=== PATIENT | female | born 1960 | race Two or more races ===

== ENCOUNTER 2024-12-03 15:13 | Inpatient (IN) | payer MEDICARE, MEDICAID ==
[~2024-12-03] VITALS: Ht 154.9 cm; Wt 91.3 kg
[2024-12-03] MEDS: SODIUM CHLORIDE 0.9% 500 ML IV ONE (15:30)
--- NOTE | 2024-12-03 15:31 | ED.PDOC ---
History of Present Illness HPI Comments This is a 64-year-old female who comes in with chief complaint of decreased food and water intake for the past several days. The patient states that she choked on something approximately three weeks ago and now her throat is somewhat sore so she is unable to eat. She was not taking any of her medications for approximately three weeks either. The patient states that she has not eaten food for eight days and is not drinking fluid. Upon transport, the patient had normal vital signs and is not complaining of any chest pain or shortness for breath. Her approximately three months ago and she has been somewhat depressed as well. Chief Complaint: General Weakness Time Seen by MD: 15:16 Reviewed Notes: Nurses Notes, Racket Stringer Notes, Medications, Allergies (Allergies listed above) Allergies: Coded Allergies: Sulfa Antibiotics (Verified Allergy, Unknown, 12/03/24) Information Source: Patient, Emergency Med Personnel Mode of Arrival: EMS Severity: Moderate Timing: Days Duration: Since onset Prehospital treatment: IVF, Other (Normal saline fluid) Associated signs and symptoms Generalized weakness with decreased food intake and fluid intake Past Medical History PAST MEDICAL HISTORY: Depression, HTN Surgical History: Appendectomy, Cholecystectomy, , Tonsillectomy, Denies all surgeries VISITOR SERVICES COORDINATOR History: No Pertinent VISITOR SERVICES COORDINATOR History Family History Family History: Family hx of DM Social History Smoker: Cigarettes Alcohol: Denies ETOH Use Drugs: Denies Drug Use Lives In: Home Constitutional: reports: weakness; denies: chills, diaphoresis, fatigue, fever, malaise, sweats, others EENTM: denies: blurred vision, double vision, ear bleeding, ear discharge, ear drainage, ear pain, ear ringing, eye pain, eye redness, hearing loss, mouth pain, mouth swelling, nasal discharge, nose bleeding, nose congestion, nose pain, photophobia, tearing, throat pain, throat swelling, voice changes, others Respiratory: denies: cough, hemoptysis, orthopnea, SOB at rest, shortness of breath, SOB with excertion, stridor, wheezing, others Cardiovascular: denies: chest pain, dizzy spells, diaphoresis, Dyspnea on exertion, edema, irregular heart beat, left arm pain, lightheadedness, palpitations, PND, syncope, others Gastrointestinal: reports: poor appetite; denies: abdomen distended, abdominal pain, blood streaked bowels, constipated, diarrhea, dysphagia, difficulty swallowing, hematemesis, melena, nausea, poor fluid intake, rectal bleeding, rectal pain, vomiting, others Genitourinary: denies: abnormal vagina bleeding, burning, dyspareunia, dysuria, flank pain, frequency, hematuria, incontinence, pain, , vagina discharge, urgency, others Neurological: denies: dizziness, fainting, headache, left sided numbness, left sided weakness, numbness, paresthesia, pre-existing deficit, right sided numbness, right sided weakness, seizure, speech problems, tingling, tremors, weakness, others Musculoskeletal: denies: back pain, gout, joint pain, joint swelling, muscle pain, muscle stiffness, neck pain, others Integumetry: denies: bruises, change in color, change in hair/nails, dryness, laceration, lesions, lumps, rash, wounds, others Allergic/Immunocompromised: denies: Difficulty Healing, Frequent Infections, Hives, Itching, others Hematologic/Lymphatic: denies: anemia, blood clots, easy bleeding, easy bruising, swollen glands, others Endocrine: denies: excessive hunger, excessive sweating, excessive thirst, excessive urination, flushing, intolerance to cold, intolerance to heat, unexplained weight gain, unexplained weight loss, others Psychiatric: denies: anxiety, bipolar disorder, depression, hopeless, panic disorder, schizophrenia, sleepless, suicidal, others Physical Exam General Appearance: Moderate Distress HEENT: Pale Conjuntivae (L), Pale Conjuntivae (R), Pharynx Normal, TMs Normal Neck: Full Range of Motion, Non-Tender, Normal, Normal Inspection Respiratory: Chest Non-Tender, Lungs Clear, No Accessory Muscle Use, No Respiratory Distress, Normal Breath Sounds Cardiovascular: No Edema, No JVD, No Murmur, No Gallop, Normal Peripheral Pulses, Regular Rate/Rhythm Breast Exam: Deferred Gastrointestinal: No Organomegaly, Non Tender, No Pulsatile Mass, Normal Bowel Sounds, Soft Genitalia: Deferred Pelvic: Deferred Rectal: Deferred Extremities: No calf tenderness, Normal capillary refill, Normal inspection, Normal range of motion, Non-tender, No pedal edema Musculoskeletal : Apperance: Normal Neurologic: Alert, dance therapist II-XII nml as Tested, Motor Weakness, Normal Affect, Normal Mood, No Sensory Deficits Cerebellar Function: Normal Reflexes: Normal Skin: Dry, Normal Color, Warm Lymphatic: No Adenopathy Was a procedure done? Was a procedure done?: No EKG EKG : Pulse Rate (adult): 72 [place]: Normal Cardiac Rhythm: NSR Block: None ST: Nonsp Differential Dx Considerations may include: Generalized weakness, dehydration, sepsis, UTI X-Ray, Labs, Meds, VS Vital Signs Date Time Temp Pulse Resp B/P (MAP) Pulse Ox O2 Delivery O2 Flow Rate FiO2 12/03/24 19:30 Room Air* 0 21 12/03/24 19:30 98.0 65 18 121/53 (75) 97 98.0 12/03/24 18:30 64 20 121/53 (75) 97 12/03/24 17:00 98.5 66 16 124/75 (91) 97 98.5 12/03/24 15:40 68 14 100 Room Air* 0 21 12/03/24 15:40 98.5 68 14 128/56 (80) 100 98.5 12/03/24 15:36 72 12/03/24 15:21 98.1 81 14 155/82 (106) 100 98.1 12/03/24 15:15 72 Lab Test 12/03/24 19:59 12/03/24 17:18 12/03/24 16:16 Range/Units Urine Color Yellow Yellow Urine Clarity Turbid H Clear Urine pH 6.0 5.0-9.0 Urine Specific [place] 1.026 1.001-1.035 Urine Protein 1+ H Negative Urine Ketones 4+ H Negative Urine Blood Negative Negative /uL Urine Nitrite 2+ H Negative Urine Bilirubin Negative Negative Urine Urobilinogen Normal Negative mg/dL Urine Leukocyte Esterase Negative Negative /uL Urine RBC 1 0 - 4 /hpf Urine Microscopic WBC 1 0-5 /HPF Urine Squamous Epithelial Cells Mod <5 /hpf Urine Amorphous Crystals Few None Seen /hpf Urine Bacteria Mod H None Seen /hpf Urine Hyaline Casts Few 0 - 2 /lpf Urine Mucus Few None Seen Urine Glucose Normal Normal mg/dL White Blood Count 8.4 4.4-10.8 10^3/uL Red Blood Count 4.96 4.0-5.20 10^6/uL Hemoglobin 14.8 12.2-16.2 g/dL Hematocrit 45.3 36.0-46.0 % Mean Corpuscular Volume 91.5 80.0-100.0 fL Mean Corpuscular Hemoglobin 29.8 28.0-32.0 pg Mean Corpuscular Hemoglobin Concent 32.5 32.0-36.0 g/dL Red Cell Distribution Width 21.3 H 11.8-14.3 % Platelet Count 234 140-450 10^3/uL Mean Platelet Volume 11.2 H 6.9-10.8 fL Neutrophils (%) (Auto) 69.6 37.0-80.0 % Lymphocytes (%) (Auto) 21.7 10.0-50.0 % Monocytes (%) (Auto) 7.9 0.0-12.0 % Eosinophils (%) (Auto) 0.3 0.0-7.0 % Basophils (%) (Auto) 0.5 0.0-2.0 % Neutrophils # (Auto) 5.8 1.6-8.6 10 ^3/uL Lymphocytes # (Auto) 1.8 0.4-5.4 10 ^3/uL Monocytes # (Auto) 0.7 0-1.3 10 ^3/uL Eosinophils # (Auto) 0 0-0.8 10 ^3/uL Basophils # (Auto) 0 0-0.2 10 ^3/uL Nucleated Red Blood Cells 0.1 % Sodium Level 136 136-145 mmol/L Potassium Level 3.1 L 3.5-5.1 mmol/L Chloride Level 105 98-107 mmol/L Carbon Dioxide Level 17 L 20-31 mmol/L Anion Gap 14 5-15 Blood Urea Nitrogen 19 9-23 mg/dL Creatinine 1.26 H 0.550-1.02 mg/dL Glomerular Filtration Rate Calc 47 >90 mL/min BUN/Creatinine Ratio 15.1 10.0-20.0 Serum Glucose 84 74-106 mg/dL Calcium Level 10.3 8.7-10.4 mg/dL Total Bilirubin 0.7 0.2-1.0 mg/dL Aspartate Amino Transferase (AST) 26 13-40 U/L Alanine Aminotransferase (ALT) 22 7-40 U/L Alkaline Phosphatase 76 46-116 U/L Total Protein 7.2 5.7-8.2 g/dL Albumin 4.4 3.2-4.8 g/dL Current Medications Medications (Trade) Dose Ordered Sig/Melody Route Start Time Stop Time Status Last Admin Sodium Chloride 500 ml @ 500 mls/hr Q1H ONCE IV 12/03/24 15:30 12/03/24 16:29 DC 12/03/24 15:30 Potassium Bicarbonate (Klor-Con/Ef) 50 meq ONCE ONCE PO 12/03/24 17:45 12/03/24 17:46 DC 12/03/24 17:41 The patient's CBC is within normal limits The chemistry panel shows hypokalemia at 3.1 The patient was being given potassium The patient had an IV Hep-Lock and given normal saline at a 500 cc bolus The urine test is negative At this time, the patient was being admitted to the hospitalist Time of 1ST Reevaluation: 15:35 Reevaluation 1ST: Unchanged Patient Education/Counseling: Diagnosis, Treatment, Prognosis Family Education/Counseling: Diagnosis, Treatment, Prognosis Departure 1 Departure Time of Disposition: 20:36 Impression: Primary Impression: Generalized weakness Additional Impressions: Dehydration Failure to thrive Qualified Codes: R62.7 - Adult failure to thrive Disposition: ADMITTED INPATIENT Admit to: Med Surg Condition: Fair Critical Care Note Critical Care Time?: Yes (35 min-critical care time only) Stability Stability form required: Yes Unstable for transfer: ED Physician Assesment (Clinical assesment) Heart Score Heart Score: Heart Score Response (Comments) Value History N/A 0 EKG N/A 0 Age N/A 0 Risk Factors N/A 0 Troponin N/A 0 Total 0 DEMETRIUS LR MD Dec 03, 2024 15:31
[2024-12-03 15:40] VITALS: PULSE 68; RESP 14; O2SAT 100
[2024-12-03 16:54] LABS: Alanine Aminotransferase 22 U/L (7-40); Albumin 4.4 g/dL (3.2-4.8); Alkaline Phosphatase 76 U/L (46-116); Anion Gap 14 (5-15); Aspartate Aminotransferase 26 U/L (13-40); BUN/Creatinine Ratio 15.1 (10.0-20.0); Blood Urea Nitrogen 19 mg/dL (9-23); Calcium 10.3 mg/dL (8.7-10.4); Chloride 105 mmol/L (98-107); Glucose 84 mg/dL (74-106); Sodium 136 mmol/L (136-145); Total Protein 7.2 g/dL (5.7-8.2)
[2024-12-03 16:55] LABS: Bilirubin, Total 0.7 mg/dL (0.2-1.0)
[2024-12-03 17:03] LABS: Potassium 3.1 mmol/L (3.5-5.1)
[2024-12-03 17:04] LABS: Carbon Dioxide 17 mmol/L (20-31)
[2024-12-03 17:29] LABS: Basophils # (auto) 0 10 ^3/uL (0-0.2); Basophils % (auto) 0.5 % (0.0-2.0); Eosinophils # (auto) 0 10 ^3/uL (0-0.8); Eosinophils % (auto) 0.3 % (0.0-7.0); Hematocrit 45.3 % (36.0-46.0); Hemoglobin 14.8 g/dL (12.2-16.2); Lymphocytes # (auto) 1.8 10 ^3/uL (0.4-5.4); Lymphocytes % (auto) 21.7 % (10.0-50.0); Mean Corpuscular Hemoglobin 29.8 pg (28.0-32.0); Mean Corpuscular Hgb Conc. 32.5 g/dL (32.0-36.0); Mean Corpuscular Volume 91.5 fL (80.0-100.0); Monocytes # (auto) 0.7 10 ^3/uL (0-1.3); Monocytes % (auto) 7.9 % (0.0-12.0); Neutrophils # (auto) 5.8 10 ^3/uL (1.6-8.6); Neutrophils % (auto) 69.6 % (37.0-80.0); Nucleated Red Blood Cells % 0.1 %; Platelet Count (auto) 234 10^3/uL (140-450); Red Blood Cells 4.96 10^6/uL (4.0-5.20); White Blood Cell 8.4 10^3/uL (4.4-10.8)
[2024-12-03 17:30] LABS: Red Cell Distribution Width 21.3 % (11.8-14.3)
[2024-12-03] MEDS: POTASSIUM EFFERVESENT TAB 25 MEQ PO ONE (17:41)
--- NOTE | 2024-12-03 18:57 | ECG ---
[facility] Test Date: 2024-12-03 Test Time: 15:15:01 Pat Name: COURTNEY EARL Department: ED Room: 0250 Gender: F Co Founder And Chairman: jesus : 1960 Requested By: DEMETRIUS LR Order Number: [id number] Reading MD: Quang Saleh Measurements Intervals [place] Rate: 72 P: 34 PA: 165 QRS: -39 QRSD: 94 T: 33 QT: 374 QTc: 410 Interpretive Statements Sinus rhythm Inferior infarct, old Anterior infarct, old Electronically Signed On 12-04-2024 18:48:51 PDT by Quang Saleh Please click the below link to view image of tracing.
[2024-12-03 20:33] LABS: Urine Amorphous Crystal FEW /hpf (None Seen); Urine Bacteria MOD /hpf (None Seen); Urine Blood Negative /uL (Negative); Urine Clarity Turbid (Clear); Urine Color Yellow (Yellow); Urine Hyaline Cast FEW /lpf (0 - 2); Urine Mucus FEW (None Seen); Urine Protein, UAD 1+ (Negative); Urine Specific Gravity 1.026 (1.001-1.035); Urine Squamous Epithelial Cell MOD /hpf (<5); Urine Urobilinogen Normal (Negative); Urine WBC 1 /HPF (0-5)
[2024-12-04] VITALS (11 sets, daily range): BP systolic 102–135; BP diastolic 40–97; PULSE 55–82; RESP 16–18; TEMP 97.5–98.1; O2SAT 94–100
--- NOTE | 2024-12-04 00:24 | DVHHP2 ---
History of Present Illness Reason for Visit: Difficulty swallowing History of Present Illness 64-year-old female presents for evaluation of difficulty swallowing. Patient reports a two weeks ago while eating meat she felt a piece getting stuck in her throat. She reports that since then she has the sensation of having a piece of food in her throat and has not been able to eat solid food. She states being able to drink fluids. Denies shortness or breath. No other acute complaints reported. Past Medical History Hypertension and depression Past Surgical History Cholecystectomy, appendectomy, , tonsillectomy Family History Noncontributory Smoke: <1 pack per day ALCOHOL: none Drugs: None Lives: with Family Review of Systems Review of Systems Review of systems are currently negative otherwise addressed in HPI. Allergies: Coded Allergies: Sulfa Antibiotics (Verified Allergy, Unknown, 12/03/24) Exam Vital Signs Vital Signs Date Time Temp Pulse Resp B/P (MAP) Pulse Ox O2 Delivery O2 Flow Rate FiO2 12/03/24 22:00 98.0 57 18 115/55 (75) 97 98.0 12/03/24 19:30 Room Air* 0 21 Exam Gen: 64-year-old female in no apparent distress, obese Skin: Warm, dry, normal color and texture, no rash. HEENT: Normocephalic atraumatic, mucous membranes moist and pink. Neck: Cervical and supraclavicular nodes normal without enlargement, trachea is midline, thyroid gland is normal without masses. Pulmonary: Clear to auscultation and percussion bilaterally. Cardiac: Regular rate and rhythm. No murmur Abdomen: Soft, nontender, nondistended, bowel sounds present all 4 quadrants, no guarding, no rigidity, no organomegaly. Extremities: No cyanosis, clubbing, no edema Neuro: Cranial nerves II through XII grossly intact, normal affect and speech, no focal motor deficits. Labs/Xrays Labs Test 12/03/24 19:59 12/03/24 17:18 12/03/24 16:16 Range/Units Urine Color Yellow Yellow Urine Clarity Turbid H Clear Urine pH 6.0 5.0-9.0 Urine Specific [place] 1.026 1.001-1.035 Urine Protein 1+ H Negative Urine Ketones 4+ H Negative Urine Blood Negative Negative /uL Urine Nitrite 2+ H Negative Urine Bilirubin Negative Negative Urine Urobilinogen Normal Negative mg/dL Urine Leukocyte Esterase Negative Negative /uL Urine RBC 1 0 - 4 /hpf Urine Microscopic WBC 1 0-5 /HPF Urine Squamous Epithelial Cells Mod <5 /hpf Urine Amorphous Crystals Few None Seen /hpf Urine Bacteria Mod H None Seen /hpf Urine Hyaline Casts Few 0 - 2 /lpf Urine Mucus Few None Seen Urine Glucose Normal Normal mg/dL White Blood Count 8.4 4.4-10.8 10^3/uL Red Blood Count 4.96 4.0-5.20 10^6/uL Hemoglobin 14.8 12.2-16.2 g/dL Hematocrit 45.3 36.0-46.0 % Mean Corpuscular Volume 91.5 80.0-100.0 fL Mean Corpuscular Hemoglobin 29.8 28.0-32.0 pg Mean Corpuscular Hemoglobin Concent 32.5 32.0-36.0 g/dL Red Cell Distribution Width 21.3 H 11.8-14.3 % Platelet Count 234 140-450 10^3/uL Mean Platelet Volume 11.2 H 6.9-10.8 fL Neutrophils (%) (Auto) 69.6 37.0-80.0 % Lymphocytes (%) (Auto) 21.7 10.0-50.0 % Monocytes (%) (Auto) 7.9 0.0-12.0 % Eosinophils (%) (Auto) 0.3 0.0-7.0 % Basophils (%) (Auto) 0.5 0.0-2.0 % Neutrophils # (Auto) 5.8 1.6-8.6 10 ^3/uL Lymphocytes # (Auto) 1.8 0.4-5.4 10 ^3/uL Monocytes # (Auto) 0.7 0-1.3 10 ^3/uL Eosinophils # (Auto) 0 0-0.8 10 ^3/uL Basophils # (Auto) 0 0-0.2 10 ^3/uL Nucleated Red Blood Cells 0.1 % Sodium Level 136 136-145 mmol/L Potassium Level 3.1 L 3.5-5.1 mmol/L Chloride Level 105 98-107 mmol/L Carbon Dioxide Level 17 L 20-31 mmol/L Anion Gap 14 5-15 Blood Urea Nitrogen 19 9-23 mg/dL Creatinine 1.26 H 0.550-1.02 mg/dL Glomerular Filtration Rate Calc 47 >90 mL/min BUN/Creatinine Ratio 15.1 10.0-20.0 Serum Glucose 84 74-106 mg/dL Calcium Level 10.3 8.7-10.4 mg/dL Total Bilirubin 0.7 0.2-1.0 mg/dL Aspartate Amino Transferase (AST) 26 13-40 U/L Alanine Aminotransferase (ALT) 22 7-40 U/L Alkaline Phosphatase 76 46-116 U/L Total Protein 7.2 5.7-8.2 g/dL Albumin 4.4 3.2-4.8 g/dL Assessment/Plan Assessment/Plan Assessment ? Esophageal obstruction Dysphagia Acute kidney injury Hypokalemia Plan Admit the patient to [facility] to the hospitalist GI consult Chest CT pending Maintenance IV fluids NPO Continue treatment per orders. Plan discussed with: Patient My Orders Orders - CORINE PRO Procedure Category Date Status Time Chest Without Contrast CT 12/03/24 Logged 23:57 Admit ADMIT 12/03/24 Transmitted 23:57 * Gi Dvh Master Automotive Technician CONS 12/04/24 Transmitted 00:16 D5w/Sod Chlo 0.9% Ns PHA 12/04/24 Transmitted 00:30 Basic Metabolic Panel LAB 12/04/24 Transmitted 04:00 Ondansetron Hcl PHA 12/04/24 Transmitted (Zofran) 00:30 Npo (Nothing By DIET 12/04/24 Transmitted Mouth) Diet Breakfast Condition: Stable DALILA 12/04/24 Transmitted 00:16 Bedrest With Bathroom DALILA 12/04/24 Transmitted Privileg 00:16 Date of Service: Dec 03, 2024 Billing Provider: CORINE PRO Common Visit Codes: [id number] INP/OBS CARE (MOD) CORINE PRO Dec 04, 2024 00:24
[2024-12-04] MEDS ORDERED: ONDANSETRON HCL 4 MG/2 ML VIAL IV PRN (00:30)
[2024-12-04] MEDS: D5W/SOD CHLO 0.9% 1,000 ML IV ONE (00:30)
--- NOTE | 2024-12-04 00:58 | DVH ---
Procedure: CT CHEST WITHOUT CONTRAST Reason for study/Clinical History: Esophageal obstruction Comparison Study: None available at time of dictation. TECHNIQUE: Multidetector CT of the chest was performed from the lung apices to the upper abdomen with out the use of intravenous contract. Axial, coronal and sagittal multiplanar reformats were performed . Radiation Dose Information: CT Dose: CTDI volume is 21.3 mGy. Dose-length product is 871.57 mGy*cm The dose indicators for CT are the volume Computed Tomography (CT) Dose Index (CTDIvol) and the Dose Length Product (DLP), and are measured in units of mGy and mGy-cm, respectively. These indicators are not patient dose, but values generated from the CT scanner acquisition factors. The report includes radiation exposure data for exposures received during this examination. FINDINGS: Lower neck: Unremarkable. Lungs: No focal consolidation. No suspicious pulmonary nodule. Heart/Vascular Structures: Normal heart size. No pericardial effusion. Atherosclerotic vascular calci fications are present within the aorta and coronary arterial vasculature. Lymph Nodes: No adenopathy Pleura: No pleural effusion or significant pneumothorax. Musculoskeletal: No acute osseous abnormality. Soft tissues: Normal. Upper abdomen: Lobulated hypoattenuating left adrenal mass measures 3.6 x 2.7 cm. Status post cholecy stectomy. IMPRESSION: 1. No acute intrathoracic abnormality. 2. Left adrenal mass lesion most likely representing an adenoma, however, noncontrast evaluation limi ts characterization mass lesions. Radiation optimization: All CT scans at this facility use at least one of these dose optimization bharat hniques: automated exposure control mA and/or kV adjustment per patient size (includes targeted exam s where dose is matched to clinical indication) or iterative reconstruction.
[2024-12-04 07:24] LABS: Chloride 106 mmol/L (98-107)
[2024-12-04 07:25] LABS: Anion Gap 13 (5-15)
[2024-12-04 07:26] LABS: Calcium 10.1 mg/dL (8.7-10.4)
[2024-12-04 07:29] LABS: Carbon Dioxide 17 mmol/L (20-31); Potassium 3.3 mmol/L (3.5-5.1); Sodium 136 mmol/L (136-145)
[2024-12-04 07:30] LABS: Glucose 85 mg/dL (74-106)
[2024-12-04 07:31] LABS: Blood Urea Nitrogen 19 mg/dL (9-23)
[2024-12-04 11:59] LABS: INR 1.02 (0.9-1.15); Partial Thromboplastin Time 26.5 SEC (24.5-34.5); Prothrombin Time 10.8 sec (9.3-11.8)
--- NOTE | 2024-12-04 12:22 | DVH ---
INDICATION: Pre-op. pain TECHNIQUE: Frontal view of the chest. COMPARISON: None FINDINGS: . The heart and mediastinal contours are grossly unremarkable. There is no evidence of pleural disea se. The lungs are clear. The bony structures of the chest are intact without fracture. IMPRESSION: 1. No evidence of acute disease.
--- NOTE | 2024-12-04 12:25 | DVHINCON2 ---
GI Consult Consult Note GI consult note Date of Consultation: 12/04/2024 Chief Complaint: Esophageal obstruction dysphagia Referring Physician: Sergey EWING H&P: 64-year-old female presented to ER with difficulty swallowing. Patient reports that she feels a piece of meat stuck in her upper esophagus this incident occurred two weeks ago. Since then patient is having hard time eating solid foods. Able to consume liquids and water. No nausea or vomiting. Denies abdominal pain. No history of GERD. Last bowel movement one day ago, loose stool. No melena or red blood in stool Patient reports weight loss of 75 lb in the last 4-5 months, since her No blood thinners Past Medical History: Hypertension and depression Past Surgical History: Cholecystectomy, appendectomy, , tonsillectomy Social History: Smoke: <1 pack per day ALCOHOL: none Drugs: None Lives: with Family Family History: Noncontributory Review of Systems: Constitutional: no fever, chill, weight loss HEENT: no eye pain, no hearing loss, no oral lesion, no scleral icterus Heart: no chest pain, no chest pressure Lung: no cough, no dyspnea with exertion Abdomen: see HPI Physical exam: General: NAD, AAOX3 Chest: lung salcedo clear to auscultation Heart: RRR, no murmur Abdomen: non-distended, no tenderness to palpation, +BS Labs: Labs Test 12/04/24 11:30 12/04/24 06:43 12/03/24 19:59 12/03/24 17:18 Range/Units Prothrombin Time 10.8 9.3-11.8 sec Prothrombin Time INR 1.02 0.9-1.15 Activated Partial Thromboplast Time 26.5 24.5-34.5 SEC Sodium Level 136 136-145 mmol/L Potassium Level 3.3 L 3.5-5.1 mmol/L Chloride Level 106 98-107 mmol/L Carbon Dioxide Level 17 L 20-31 mmol/L Anion Gap 13 5-15 Blood Urea Nitrogen 19 9-23 mg/dL Creatinine 1.12 H 0.550-1.02 mg/dL Glomerular Filtration Rate Calc 55 >90 mL/min BUN/Creatinine Ratio 17.0 10.0-20.0 Serum Glucose 85 74-106 mg/dL Calcium Level 10.1 8.7-10.4 mg/dL Beta HCG, Quantitative 2.3 1.5-4.2 mIU/mL Urine Color Yellow Yellow Urine Clarity Turbid H Clear Urine pH 6.0 5.0-9.0 Urine Specific [place] 1.026 1.001-1.035 Urine Protein 1+ H Negative Urine Ketones 4+ H Negative Urine Blood Negative Negative /uL Urine Nitrite 2+ H Negative Urine Bilirubin Negative Negative Urine Urobilinogen Normal Negative mg/dL Urine Leukocyte Esterase Negative Negative /uL Urine RBC 1 0 - 4 /hpf Urine Microscopic WBC 1 0-5 /HPF Urine Squamous Epithelial Cells Mod <5 /hpf Urine Amorphous Crystals Few None Seen /hpf Urine Bacteria Mod H None Seen /hpf Urine Hyaline Casts Few 0 - 2 /lpf Urine Mucus Few None Seen Urine Glucose Normal Normal mg/dL White Blood Count 8.4 4.4-10.8 10^3/uL Red Blood Count 4.96 4.0-5.20 10^6/uL Hemoglobin 14.8 12.2-16.2 g/dL Hematocrit 45.3 36.0-46.0 % Mean Corpuscular Volume 91.5 80.0-100.0 fL Mean Corpuscular Hemoglobin 29.8 28.0-32.0 pg Mean Corpuscular Hemoglobin Concent 32.5 32.0-36.0 g/dL Red Cell Distribution Width 21.3 H 11.8-14.3 % Platelet Count 234 140-450 10^3/uL Mean Platelet Volume 11.2 H 6.9-10.8 fL Neutrophils (%) (Auto) 69.6 37.0-80.0 % Lymphocytes (%) (Auto) 21.7 10.0-50.0 % Monocytes (%) (Auto) 7.9 0.0-12.0 % Eosinophils (%) (Auto) 0.3 0.0-7.0 % Basophils (%) (Auto) 0.5 0.0-2.0 % Neutrophils # (Auto) 5.8 1.6-8.6 10 ^3/uL Lymphocytes # (Auto) 1.8 0.4-5.4 10 ^3/uL Monocytes # (Auto) 0.7 0-1.3 10 ^3/uL Eosinophils # (Auto) 0 0-0.8 10 ^3/uL Basophils # (Auto) 0 0-0.2 10 ^3/uL Nucleated Red Blood Cells 0.1 % Test 12/03/24 16:16 Range/Units Total Bilirubin 0.7 0.2-1.0 mg/dL Aspartate Amino Transferase (AST) 26 13-40 U/L Alanine Aminotransferase (ALT) 22 7-40 U/L Alkaline Phosphatase 76 46-116 U/L Total Protein 7.2 5.7-8.2 g/dL Albumin 4.4 3.2-4.8 g/dL Imaging: CT chest IMPRESSION: 1. No acute intrathoracic abnormality. 2. Left adrenal mass lesion most likely representing an adenoma, however, noncontrast evaluation limits characterization mass lesions. Assessment: Foreign body in esophagus Dysphagia Weight loss Plan: Patient also seen by Dr. Guevara - Pt will be scheduled for an EGD today 12/04/2024. Pt was informed of the risks (bleeding, infection, perforation, reaction to sedation medications and cardiopulmonary arrest) and benefit and is agreeable to undergo the procedures. Further recommendations to follow procedure Discussed plan with patient and RN Thank you for this consult Date of Service: Dec 04, 2024 Billing Provider: DONITA VELASCO Common Visit Codes: CONSULT ONLY Consultation Codes: [id number] CONSULT <60MIN DONITA VELASCO Dec 04, 2024 12:25
--- NOTE | 2024-12-04 15:31 | DVHOP2 ---
Operative Report DATE OF OPERATION: 12/04/24 PROCEDURE: Upper Endoscopy with biopsy. PREOPERATIVE INDICATION: The patient is a 64 -year-old female undergoing endoscopy for suspected food impaction and atypical chest discomfort POSTOPERATIVE DIAGNOSES: 1. She had a 2-3 cm sliding-type hiatal hernia with grade B erosive esophagitis at the Schatzki's ring, there was no residual chicken or food impaction 2. Mild gastritis otherwise normal examination up to the 2nd and 3rd part of the duodenum PROCEDURE PERFORMED BY: Saray Guevara GI NURSE: Edie SCOPE: Olympus videoendoscope. ASA CLASS: 3 PREOPERATIVE MEDICATIONS: Mac sedation, Erick Stein PROCEDURE IN DETAIL: After obtaining an informed consent, the patient was placed on left lateral decubitus position. The patient was then sedated with the above medications. A bite block was placed between her teeth. The endoscope was then passed through the oropharynx, into the esophagus, and through the stomach and pylorus up to the second and third part of the duodenum. The endoscope was then withdrawn. The 2nd and 3rd part of the duodenal and the duodenal bulb were normal. Duodenal biopsies were obtained The pre-pyloric area and antrum and body showed mild gastritis. Gastric biopsies were obtained. On retroflexion the fundus and cardia were normal. There was no residual food or debris in the stomach. Endoscope was then withdrawn into the distal esophagus where she had a 2-3 cm sliding-type hiatal hernia with grade B erosive esophagitis There was a slight Schatzki's ring. There was no residual food bolus or debris in the esophagus and some GE junction biopsies were obtained The patient tolerated the procedure well without difficulty. COMPLICATIONS : None SPECIMENS: Duodenal biopsies Gastric biopsies GE junction biopsies DISPOSITION: Transfer back to the floor Stable PLAN: 1. Await for biopsy result 2. Will place pt on Protonix 40 mg bid 3. Carafate 1 g p.o. twice a day 4. Resume soft mechanical diet advance as tolerated 5. Outpatient follow up with me in 4-6 weeks to review results and discuss further management 6. Chew food well and drink warm liquids with her meals 7. Stable for discharge from GI point of SARAY GUEVARA MD Dec 04, 2024 15:31
--- NOTE | 2024-12-04 16:41 | DVHPN2 ---
Subjective Patient denies any acute symptoms at this time. Patient was report having generalized weakness, constipation, diarrhea, difficulty eating, difficulty sleeping. Reviewed: Care Plan, H&P, Labs, Medications Changes from previous H/P or p: No Changes General: Per HPI Objective Vitals Vital Signs Date Time Temp Pulse Resp B/P (MAP) Pulse Ox O2 Delivery O2 Flow Rate FiO2 12/04/24 16:00 56 16 93/38 (56) 100 12/04/24 16:00 97.7 97.7 12/04/24 15:40 Room Air 97 12/04/24 15:24 7.0 Intake/Output Intake and Output 12/04/24 07:00 Intake Total 575 ml Balance 575 ml Intake Oral 0 ml IV Total 575 ml # Voids 1 General Appearance: Oriented X3, Cooperative, mild distress HEENT: Atraumatic, PERRLA Lungs: Clear to auscultation, Normal air movement Cardiovascular: Normal S1, Normal S2 Abdomen: Normal bowel sounds, Soft, No tenderness, No hepatospenomegaly, No masses Musculoskeletal: Normal sensory function, Normal motor function Extremities: No clubbing, No cyanosis, No edema Skin: Dry, Intact Psych/Mental Status: Mental status NL, Mood NL Medications Current Medications Medications Dose Ordered Sig/Melody Route Start Time Stop Time Status Last Admin Dose Admin Ondansetron HCl 4 mg Q4HP PRN IV 12/04/24 00:30 Pantoprazole Sodium 40 mg BID@0600,1700 PO 12/04/24 17:00 Sucralfate 1 gm QID@0600,1130,1700,2200 PO 12/04/24 17:00 Laboratory Results Laboratory Tests 12/03/24 17:18 12/04/24 06:43 Chemistry Test 12/04/24 06:43 Calcium Level 10.1 mg/dL (8.7-10.4) Coagulation Test 12/04/24 11:30 Prothrombin Time 10.8 sec (9.3-11.8) Prothrombin Time INR 1.02 (0.9-1.15) Activated Partial Thromboplast Time 26.5 SEC (24.5-34.5) Urinalysis Test 12/03/24 19:59 Urine Color Yellow (Yellow) Urine Clarity Turbid (Clear) H Urine pH 6.0 (5.0-9.0) Urine Specific [place] 1.026 (1.001-1.035) Urine Protein 1+ (Negative) H Urine Ketones 4+ (Negative) H Urine Blood Negative /uL (Negative) Urine Nitrite 2+ (Negative) H Urine Bilirubin Negative (Negative) Urine Urobilinogen Normal mg/dL (Negative) Urine Leukocyte Esterase Negative /uL (Negative) Urine RBC 1 /hpf (0 - 4) Urine Microscopic WBC 1 /HPF (0-5) Urine Squamous Epithelial Cells Mod /hpf (<5) Urine Amorphous Crystals Few /hpf (None Seen) Urine Bacteria Mod /hpf (None Seen) H Urine Hyaline Casts Few /lpf (0 - 2) Urine Mucus Few (None Seen) Urine Glucose Normal mg/dL (Normal) Labs and/or images reviewed: Labs reviewed by me, Image(s) reviewed by me Assessment/Plan Assessment/Plan Impression: -questionable food bolus obstruction, ruled out -probable major depression disorder -history of chronic pain management -obesity -primary hypertension -nicotine dependence Plan: -patient was status post EGD with noted esophagitis gastritis -long discussion made with the patient's family bedside. Patient has had difficulty sleeping, loss weight, poor appetite. Patient also had her approximately four months ago. Symptoms have not improved. -psychiatry consultation -check TSH, vitamin-D, B12 -start mechanical soft diet -potassium replacement Total time spent with patient discussing and formulating plan of care: 35 minutes. This medical document was created using an electronic medical record system with [email or web address] dictation system. Although this document has been carefully reviewed, there may still be some phonetic and typographical errors. These areas are purely typographical due to imperfections of the software programs, and do not reflect any compromise in the patient's medical care. Plan discussed with: Patient, Other (RN) My Orders Orders - CONCHIS ATKINS NP Procedure Category Date Status Time Thyroid Stimulating LAB 12/04/24 Transmitted Hormone 16:24 Vitamin B1 (Thiamine) LAB 12/04/24 Transmitted 16:24 Vitamin D 25-Hydroxy LAB 12/04/24 Transmitted D2 + D3 16:24 Vitamin B6 LAB 12/04/24 Verified 16:24 Banana Bag D5w PHA 12/04/24 Verified 18:00 Date of Service: Dec 04, 2024 Billing Provider: CONCHIS ATKINS PARKING TECHNICIAN Common Visit Codes: [id number] INP/OBS CARE(HIGH) CONCHIS ATKINS PARKING TECHNICIAN Dec 04, 2024 16:41
[2024-12-04] MEDS: SUCRALFATE 1 GM/10 ML ORAL SUSP PO SCH (17:49)
[2024-12-04] MEDS: PANTOPRAZOLE 40 MG TAB PO SCH (17:50)
[2024-12-04] MEDS: FOLIC ACID 1 MG, MULTIPLE VITAMIN 10 ML, MAGNESIUM SULF SDV 50% 8 MEQ, THIAMINE INJ 100... INJ SCH (17:56)
--- NOTE | 2024-12-04 20:58 | DVHINCON2 ---
Date of Service if different f: Dec 04, 2024 Time of Service: 20:37 Consultation ([facility]) Consulting Physician: ESTEVAN KUMAR MD Labs Laboratory Tests Test 12/03/24 16:16 12/03/24 17:18 12/03/24 19:59 12/04/24 06:43 Total Bilirubin 0.7 mg/dL (0.2-1.0) Aspartate Amino Transf (AST/SGOT) 26 U/L (13-40) Alanine Aminotransferase (ALT/SGPT) 22 U/L (7-40) Alkaline Phosphatase 76 U/L (46-116) Total Protein 7.2 g/dL (5.7-8.2) Albumin 4.4 g/dL (3.2-4.8) White Blood Count 8.4 10^3/uL (4.4-10.8) Red Blood Count 4.96 10^6/uL (4.0-5.20) Hemoglobin 14.8 g/dL (12.2-16.2) Hematocrit 45.3 % (36.0-46.0) Mean Corpuscular Volume 91.5 fL (80.0-100.0) Mean Corpuscular Hemoglobin 29.8 pg (28.0-32.0) Mean Corpuscular Hemoglobin Concent 32.5 g/dL (32.0-36.0) Red Cell Distribution Width 21.3 % (11.8-14.3) Platelet Count 234 10^3/uL (140-450) Mean Platelet Volume 11.2 fL (6.9-10.8) Neutrophils (%) (Auto) 69.6 % (37.0-80.0) Lymphocytes (%) (Auto) 21.7 % (10.0-50.0) Monocytes (%) (Auto) 7.9 % (0.0-12.0) Eosinophils (%) (Auto) 0.3 % (0.0-7.0) Basophils (%) (Auto) 0.5 % (0.0-2.0) Neutrophils # (Auto) 5.8 10 ^3/uL (1.6-8.6) Lymphocytes # (Auto) 1.8 10 ^3/uL (0.4-5.4) Monocytes # (Auto) 0.7 10 ^3/uL (0-1.3) Eosinophils # (Auto) 0 10 ^3/uL (0-0.8) Basophils # (Auto) 0 10 ^3/uL (0-0.2) Nucleated Red Blood Cells 0.1 % Urine Color Yellow (Yellow) Urine Clarity Turbid (Clear) Urine pH 6.0 (5.0-9.0) Urine Specific [place] 1.026 (1.001-1.035) Urine Protein 1+ (Negative) Urine Ketones 4+ (Negative) Urine Blood Negative /uL (Negative) Urine Nitrite 2+ (Negative) Urine Bilirubin Negative (Negative) Urine Urobilinogen Normal mg/dL (Negative) Urine Leukocyte Esterase Negative /uL (Negative) Urine RBC 1 /hpf (0 - 4) Urine Microscopic WBC 1 /HPF (0-5) Urine Squamous Epithelial Cells Mod /hpf (<5) Urine Amorphous Crystals Few /hpf (None Seen) Urine Bacteria Mod /hpf (None Seen) Urine Hyaline Casts Few /lpf (0 - 2) Urine Mucus Few (None Seen) Urine Glucose Normal mg/dL (Normal) Sodium Level 136 mmol/L (136-145) Potassium Level 3.3 mmol/L (3.5-5.1) Chloride Level 106 mmol/L (98-107) Carbon Dioxide Level 17 mmol/L (20-31) Anion Gap 13 (5-15) Blood Urea Nitrogen 19 mg/dL (9-23) Creatinine 1.12 mg/dL (0.550-1.02) Glomerular Filtration Rate Calc 55 mL/min (>90) BUN/Creatinine Ratio 17.0 (10.0-20.0) Serum Glucose 85 mg/dL (74-106) Calcium Level 10.1 mg/dL (8.7-10.4) Thyroid Stimulating Hormone (TSH) 0.54 uIU/mL (0.55-4.78) Beta HCG, Quantitative 2.3 mIU/mL (1.5-4.2) Test 12/04/24 11:30 Prothrombin Time 10.8 sec (9.3-11.8) Prothromb Time International Ratio 1.02 (0.9-1.15) Activated Partial Thromboplast Time 26.5 SEC (24.5-34.5) Appearance: Stated age Psychomotor activity: WNL Behavioral: Cooperative Eye contact: Appropriate Speech: WNL Affect: Appropriate, Mood Congruent Mood: Depressed Thought processes: Linear/Goal-directed Thought content: WNL Suicidal ideations: Absent Homicidal ideations: Absent Orientation: Person, Place, Time, Situation Memory intact: Recent Intellect: Average Abstractability: WNL Concentration: Adequate Attention: Adequate Judgement: WNL Insight: Good Vitals Vital Signs Date Time Temp Pulse Resp B/P (MAP) Pulse Ox O2 Delivery O2 Flow Rate FiO2 12/04/24 17:00 97.9 60 18 130/55 (80) 97 97.9 12/04/24 15:40 Room Air 97 12/04/24 15:24 7.0 Current medications Current Medications Medications Dose Ordered Sig/Melody Route Start Time Stop Time Status Last Admin Dose Admin Ondansetron HCl 4 mg Q4HP PRN IV 12/04/24 00:30 Pantoprazole Sodium 40 mg BID@0600,1700 PO 12/04/24 17:00 12/04/24 17:50 40 MG Sucralfate 1 gm QID@0600,1130,1700,2200 PO 12/04/24 17:00 12/04/24 17:49 1 GM Folic Acid 1 mg/ Multivitamins 10 ml/Magnesium Sulfate 8 meq/ Thiamine HCl 100 mg/Dextrose 1,013.2 ml @ 125.001 mls/hr DAILY@1800 INJ 12/04/24 18:00 12/05/24 02:07 12/04/24 17:56 125.001 MLS/HR Treatment plan discussed: With staff Medication adjusted: Yes Labs ordered: No Psychotherapy provided: No Type: Voluntary History of Present Illness Reason for Consult : psychiatric evaluation PER ED BLUNGER: 64-year-old female presents for evaluation of difficulty swallowing. Patient reports a two weeks ago while eating meat she felt a piece getting stuck in her throat. She reports that since then she has the sensation of having a piece of food in her throat and has not been able to eat solid food. She states being able to drink fluids. Denies shortness or breath. No other acute complaints reported. PSYCHIATRIST HPI: The patient was seen and evaluated at [facility] via telepsychiatry platform. 64 yr old female reported that her on . She noted her energy has been poor, mood has been sad, she feels like she has no strength in her legs and has difficulty getting around. She felt hopeless with her throat pain. She noted that her appetite has been poor and she hasn't eaten in two weeks. She reported she has difficulty sleeping and feels like she is awake all night. She feels like she thinks about things which keeps her up. She denied having suicidal ideation, plan or intent and denied having HI/AVH. Past Psychiatric History : No past hospitalizations, treatment or suicide attempts. Past Medical History : chronic pain in her legs, Recently diagnosed wtih esophagitis and gastritis by EGD during this hospitalization. Current medications: none Allergy to sulfa drugs Substance use: Occasional social alcohol use. Denied use of other substances. Social History : Lives In [place] with two sons and grandson. as her se cond of 8 years Marta 2023. She had lived in [place] prior to that. Diagnosis: UNSPECIFIED DEPRESSION DISORDER F32.A Formulation: This 42 yr old female appears to suffer from depression and may benefit starting an SSRI and sleep medication. Plan: 1. Safety. The patient is a low risk for self harm and is psychologically cleared for discharge once medically cleared. 2. Legal-voluntary. 3. Medications: Recommend starting the following medications and discharging with a prescription for thirty days and two refills of: Lexapro 5mg qam Trazodone 50mg qhs prn for sleep 4. Case discussed with Team JULIANA Souza. 5. Please recontact psychiatry for further follow up or reevaluation. Assessment/Diagnosis/Plan Reviewed: Labs, Medications, Previous Orders ESTEVAN KUMAR MD Dec 04, 2024 20:39
[2024-12-05] VITALS (7 sets, daily range): BP systolic 109–126; BP diastolic 50–91; PULSE 58–76; RESP 15–18; TEMP 97.5–98.5; O2SAT 94–99
--- NOTE | 2024-12-05 14:09 | DVHPN2 ---
Subjective Patient denies any acute symptoms at this time. Patient was report having generalized weakness, constipation, diarrhea, difficulty eating, difficulty sleeping. Reviewed: Care Plan, H&P, Labs, Medications Changes from previous H/P or p: No Changes General: Per HPI Objective Vitals Vital Signs Date Time Temp Pulse Resp B/P (MAP) Pulse Ox O2 Delivery O2 Flow Rate FiO2 12/05/24 13:00 98.0 69 16 126/52 (76) 98 98.0 12/05/24 08:00 Room Air* 0 21 Intake/Output Intake and Output 12/05/24 07:00 Intake Total 2310.001 ml Balance 2310.001 ml Intake Oral 600 ml IV Total 1710.001 ml # Voids 4 General Appearance: Alert, Oriented X3, Cooperative, mild distress HEENT: Atraumatic, PERRLA Lungs: Clear to auscultation, Normal air movement Cardiovascular: Normal S1, Normal S2 Abdomen: Normal bowel sounds, Soft, No tenderness, No hepatospenomegaly, No masses Musculoskeletal: Normal sensory function, Normal motor function Extremities: No clubbing, No cyanosis, No edema Skin: Dry, Intact Psych/Mental Status: Mental status NL, Mood NL Medications Current Medications Medications Dose Ordered Sig/Emlody Route Start Time Stop Time Status Last Admin Dose Admin Ondansetron HCl 4 mg Q4HP PRN IV 12/04/24 00:30 Pantoprazole Sodium 40 mg BID@0600,1700 PO 12/04/24 17:00 12/05/24 05:15 40 MG Sucralfate 1 gm QID@0600,1130,1700,2200 PO 12/04/24 17:00 12/05/24 11:51 1 GM Laboratory Results Laboratory Tests 12/03/24 17:18 12/04/24 06:43 Urinalysis Test 12/03/24 19:59 Urine Color Yellow (Yellow) Urine Clarity Turbid (Clear) H Urine pH 6.0 (5.0-9.0) Urine Specific [place] 1.026 (1.001-1.035) Urine Protein 1+ (Negative) H Urine Ketones 4+ (Negative) H Urine Blood Negative /uL (Negative) Urine Nitrite 2+ (Negative) H Urine Bilirubin Negative (Negative) Urine Urobilinogen Normal mg/dL (Negative) Urine Leukocyte Esterase Negative /uL (Negative) Urine RBC 1 /hpf (0 - 4) Urine Microscopic WBC 1 /HPF (0-5) Urine Squamous Epithelial Cells Mod /hpf (<5) Urine Amorphous Crystals Few /hpf (None Seen) Urine Bacteria Mod /hpf (None Seen) H Urine Hyaline Casts Few /lpf (0 - 2) Urine Mucus Few (None Seen) Urine Glucose Normal mg/dL (Normal) Labs and/or images reviewed: Image(s) reviewed by me Assessment/Plan Assessment/Plan Impression: -questionable food bolus obstruction, ruled out -probable major depression disorder -history of chronic pain management -obesity -primary hypertension -nicotine dependence Plan: Events: Long discussion made with patient and family regarding plan of care. -patient was status post EGD with noted esophagitis gastritis -long discussion made with the patient's family bedside. Patient has had difficulty sleeping, loss weight, poor appetite. Patient also had her approximately four months ago. Symptoms have not improved. -psychiatry consultation: recommendations reviewed. Lexapro non-formulary. Start trazadone -check TSH, vitamin-D, B12 -start mechanical soft diet -potassium replacement -social service consult Total time spent with patient discussing and formulating plan of care: 35 minutes. This medical document was created using an electronic medical record system with [employer] computerized dictation system. Although this document has been carefully reviewed, there may still be some phonetic and typographical errors. These areas are purely typographical due to imperfections of the software programs, and do not reflect any compromise in the patient's medical care. Plan discussed with: Patient, Other (RN) My Orders Orders - CONCHIS ATKINS NP Procedure Category Date Status Time Vitamin B1 (Thiamine) LAB 12/04/24 In Process 16:24 Vitamin B6 LAB 12/04/24 In Process 16:24 Soc Telemed Psych CONS 12/04/24 Transmitted Consult 16:36 Vitamin D 25-Hydroxy LAB 12/04/24 Logged D2 + D3 16:24 Trazodone Hcl PHA 12/05/24 Verified (Wilyyrel) 22:00 Date of Service: Dec 05, 2024 Billing Provider: CONCHIS ATKINS NP Common Visit Codes: [id number] INP/OBS CARE(HIGH) CONCHIS ATKINS NP Dec 05, 2024 14:09
[2024-12-05] MEDS: traZODone HCL 50 MG TAB PO SCH (21:11)
[2024-12-06 01:00] VITALS: BP 106/53; PULSE 62; RESP 18; TEMP 97.5; O2SAT 95
[2024-12-06 08:00] VITALS: PULSE 68; RESP 14; O2SAT 99
[2024-12-06 08:30] VITALS: BP 109/44; PULSE 68; RESP 14; TEMP 97.5; O2SAT 99
[2024-12-06] MEDS: POTASSIUM EFFERVESENT TAB 25 MEQ PO ONE (11:00)
[2024-12-06] MEDS ORDERED: TRAZ-227 PO (12:36)
[2024-12-06] MEDS ORDERED: ESCI5TAB PO (12:36)
[2024-12-06] MEDS ORDERED: PANT40TA2 PO (12:36)
[2024-12-06 12:40] VITALS: BP 109/44; PULSE 68; RESP 14; TEMP 97.5; O2SAT 99
--- NOTE | 2024-12-06 12:41 | DVHDS2 ---
Discharge Summary Date of Admission Dec 03, 2024 at 23:57 Date of Discharge: Dec 06, 2024 Admitting Diagnosis Dysphagia, esophageal obstruction Labs/Diagnostic Data: Laboratory Results Test 12/05/24 14:50 12/04/24 11:30 12/04/24 06:43 12/03/24 19:59 Prothrombin Time 10.8 sec (9.3-11.8) Prothrombin Time INR 1.02 (0.9-1.15) Activated Partial Thromboplast Time 26.5 SEC (24.5-34.5) Sodium Level 136 mmol/L (136-145) Potassium Level 3.3 mmol/L (3.5-5.1) Chloride Level 106 mmol/L (98-107) Carbon Dioxide Level 17 mmol/L (20-31) Anion Gap 13 (5-15) Blood Urea Nitrogen 19 mg/dL (9-23) Creatinine 1.12 mg/dL (0.550-1.02) Glomerular Filtration Rate Calc 55 mL/min (>90) BUN/Creatinine Ratio 17.0 (10.0-20.0) Serum Glucose 85 mg/dL (74-106) Calcium Level 10.1 mg/dL (8.7-10.4) Thyroid Stimulating Hormone (TSH) 0.54 uIU/mL (0.55-4.78) Beta HCG, Quantitative 2.3 mIU/mL (1.5-4.2) Urine Color Yellow (Yellow) Urine Clarity Turbid (Clear) Urine pH 6.0 (5.0-9.0) Urine Specific [place] 1.026 (1.001-1.035) Urine Protein 1+ (Negative) Urine Ketones 4+ (Negative) Urine Blood Negative /uL (Negative) Urine Nitrite 2+ (Negative) Urine Bilirubin Negative (Negative) Urine Urobilinogen Normal mg/dL (Negative) Urine Leukocyte Esterase Negative /uL (Negative) Urine RBC 1 /hpf (0 - 4) Urine Microscopic WBC 1 /HPF (0-5) Urine Squamous Epithelial Cells Mod /hpf (<5) Urine Amorphous Crystals Few /hpf (None Seen) Urine Bacteria Mod /hpf (None Seen) Urine Hyaline Casts Few /lpf (0 - 2) Urine Mucus Few (None Seen) Urine Glucose Normal mg/dL (Normal) Test 12/03/24 17:18 12/03/24 16:16 White Blood Count 8.4 10^3/uL (4.4-10.8) Red Blood Count 4.96 10^6/uL (4.0-5.20) Hemoglobin 14.8 g/dL (12.2-16.2) Hematocrit 45.3 % (36.0-46.0) Mean Corpuscular Volume 91.5 fL (80.0-100.0) Mean Corpuscular Hemoglobin 29.8 pg (28.0-32.0) Mean Corpuscular Hemoglobin Concent 32.5 g/dL (32.0-36.0) Red Cell Distribution Width 21.3 % (11.8-14.3) Platelet Count 234 10^3/uL (140-450) Mean Platelet Volume 11.2 fL (6.9-10.8) Neutrophils (%) (Auto) 69.6 % (37.0-80.0) Lymphocytes (%) (Auto) 21.7 % (10.0-50.0) Monocytes (%) (Auto) 7.9 % (0.0-12.0) Eosinophils (%) (Auto) 0.3 % (0.0-7.0) Basophils (%) (Auto) 0.5 % (0.0-2.0) Neutrophils # (Auto) 5.8 10 ^3/uL (1.6-8.6) Lymphocytes # (Auto) 1.8 10 ^3/uL (0.4-5.4) Monocytes # (Auto) 0.7 10 ^3/uL (0-1.3) Eosinophils # (Auto) 0 10 ^3/uL (0-0.8) Basophils # (Auto) 0 10 ^3/uL (0-0.2) Nucleated Red Blood Cells 0.1 % Total Bilirubin 0.7 mg/dL (0.2-1.0) Aspartate Amino Transferase (AST) 26 U/L (13-40) Alanine Aminotransferase (ALT) 22 U/L (7-40) Alkaline Phosphatase 76 U/L (46-116) Total Protein 7.2 g/dL (5.7-8.2) Albumin 4.4 g/dL (3.2-4.8) Other Laboratory Tests 12/04/24 06:43 12/03/24 17:18 Brief Hx & Hospital Course: History of Present Illness 64-year-old female presents for evaluation of difficulty swallowing. Patient reports a two weeks ago while eating meat she felt a piece getting stuck in her throat. She reports that since then she has the sensation of having a piece of food in her throat and has not been able to eat solid food. She states being able to drink fluids. Denies shortness or breath. No other acute complaints reported. Course of hospitalization: Patient had EGD, with no findings of food obstruction. Findings of mild gastritis as well as sliding hiatal hernia were noted. Patient began complaining of vague generalized ailments such as headache, tingling in her legs, generalized weakness, difficulty breathing, as well as feeling fatigued. According to patient was family of the patient has had worsening overall symptoms related to what they feels depression since her in August. Psychiatry consultation was obtained. Recommendations reviewed. Long discussion was then made with the patient and family regarding plan of care. Patient will be discharged home on PPI, as well as a trial Lexapro and trazodone. Patient was informed that she needs to be compliant with the medications to see if her symptoms resolved. She verbalized understanding. She was instructed to follow up with her PCP as well as seeking outside psychiatric follow up. Patient verbalized understanding. Physical examination General: Alert and Oriented x3. No acute distress. Well-nourished. Eyes: EOMI. Anicteric. HENT: Moist mucous membranes. Lungs: Clear to auscultation bilaterally. No accessory muscle use. Cardiovascular: Regular rate and rhythm. No murmur. No JVD. Abdomen: Soft, non-tender and non-distended. No palpable masses. Extremities: No edema. Non-tender. Skin: No rashes or lesions. Warm. Neurologic: No focal neurological deficits. CN II-XII grossly intact, but not individually tested. Psychiatric: Cooperative. Appropriate mood and affect. Total time spent with patient discussing and formulating plan of care: 35 minutes. This medical document was created using an electronic medical record system with [employer] dictation system. Although this document has been carefully reviewed, there may still be some phonetic and typographical errors. These areas are purely typographical due to imperfections of the software programs, and do not reflect any compromise in the patient's medical care. Consults/Reason for consult Gastroenterology: Dysphagia with esophageal obstruction Operations or Procedures 12/04/2024: EGD Condition at Discharge: Guarded Final Diagnosis/Problems List Major depressive disorder Esophageal obstruction Secondary diagnosis: -questionable food bolus obstruction, ruled out -probable major depression disorder -history of chronic pain management -obesity -primary hypertension -nicotine dependence -hypokalemia Discharge Disposition: Home Discharge Instruct/Medications Diet: Regular Activity: No Restrictions, As Tolerated Follow Up/Referral: Follow up with PCP in 1-2 weeks Medications: Lexapro 5 mg p.o. daily Trazodone 50 mg p.o. daily Protonix 40 mg p.o. daily 36 Discharge Statement: "Patient was advised to return to the ER or call 911 if any headaches, dizziness, shortness of breath, chest pain, abdominal pain, bleeding, fevers, or worsening of medical condition. Patient was counseled about treatment plan, medications, possible side effects, patientverbalized understanding. All questions were answered to the best of my ability. This discharge took greater then 30 minutes in planning, reviewing documentation, counseling the patient, and discussing with other team members." ASSESSMENT ASSESSMENT Assessment Major depressive disorder Esophageal obstruction Date of Service: Dec 06, 2024 Billing Provider: CONCHIS ATKINS NP Common Visit Codes: [id number]/[id number] DISCH DAY >30min CONCHIS ATKINS NP Dec 06, 2024 12:41
[2024-12-10 10:07] LABS: Vitamin B6 4.7 ug/L (3.4-65.2)
[2024-12-11 16:06] LABS: Vitamin B1, Whole Blood 242.7 nmol/L (66.5-200.0)
[2024-12-11 19:06] LABS: Vitamin D 25-Hydroxy 35 ng/mL (.); Vitamin D-2 25-Hydroxy <1.0 ng/mL (.); Vitamin D-3 25-Hydroxy 35 ng/mL (.)
== END 2024-12-06 13:23 | disposition home health service (06) | DRG 380 ==
LOC: ER 15:13 → EDBD 15:13 → OVERFLOW 23:57 → EAST 23:58
PROVIDERS: ADMIT Nurse Practitioner Acute Care; ATTEND Nurse Practitioner Acute Care
PROC: 0DB68ZX Excision of Stomach, Via Natural or Artificial Opening Endoscopic, Diagnostic (ICD-10-PCS; 2024-12-04)
PROC: 0DB48ZX Excision of Esophagogastric Junction, Via Natural or Artificial Opening Endoscopic, Diagnostic (ICD-10-PCS; 2024-12-04)
PROC: 0DB98ZX Excision of Duodenum, Via Natural or Artificial Opening Endoscopic, Diagnostic (ICD-10-PCS; principal; 2024-12-04 15:11)
DX: K22.10 Ulcer of esophagus without bleeding (principal); N17.0 Acute kidney failure with tubular necrosis; R20.2 Paresthesia of skin; F32.9 Major depressive disorder, single episode, unspecified; K44.9 Diaphragmatic hernia without obstruction or gangrene; R13.10 Dysphagia, unspecified; E87.6 Hypokalemia; E86.0 Dehydration; F17.210 Nicotine dependence, cigarettes, uncomplicated; I10 Essential (primary) hypertension; G47.9 Sleep disorder, unspecified; E66.9 Obesity, unspecified; K29.70 Gastritis, unspecified, without bleeding; Z68.37 Body mass index [BMI] 37.0-37.9, adult; Z63.4 Disappearance and death of family member; Z88.2 Allergy status to sulfonamides; Z79.899 Other long term (current) drug therapy; Z90.49 Acquired absence of other specified parts of digestive tract; Z98.891 History of uterine scar from previous surgery
CPT/HCPCS: 36415; 43239; 71045; 71250; 80048; 80053; 81001; 82306; 84207; 84425; 84443; 84702; 85025; 85610; 85730; 86850; 86900; 86901; 93005; 96360; 99291; G0378